=== PATIENT | female | born 1970 | race Caucasian/White ===

== ENCOUNTER → 2016-09-15 | Outpatient (CLI) | payer BC ==
[~2016-09-15] MED LIST: ALDACTONE 25MG25 MG PO; ALPRAZOLAM0.25 M2 PO; AMOXIL500 MG PO; CELEXA 20MG TAB20 MG PO; CLINDAMYCIN HC300 MG PO; LEVOTHYROXIN0.075 M2 PO; NORCO 325 MG-51 TAB PO; SIMVASTATIN40 MG; TORADOL10 M1 PO; TRIAMTERENE-HCTZ 37. PO; ULTRAM50 MG PO; VOLTAREN75 MG PO
--- NOTE | 2016-09-15 10:49 | RADIOLOGY REPORT PS360 ---
US RUQ-(ABD LTD)1ORGAN/QUAD/FU HISTORY: ELEVATED LIVER ENZYMES COMPARISON: None FINDINGS: PANCREAS: Unremarkable. No obvious mass or abnormal fluid collection. No ductal dilatation LIVER: Homogeneous echogenicity. No biliary dilatation. There are at least 3 hyperechoic areas within the liver the largest in the right hepatic lobe measuring 2 cm. These may represent hemangiomas. RIGHT KIDNEY: Unremarkable. Normal size and echogenicity. No hydronephrosis GALLBLADDER: Cholecystectomy. No biliary dilatation. IMPRESSION: 1. At least 3 hyperechoic hepatic lesions. These may very well represent hemangiomas. This could be further evaluated with CT or MRI with hemangioma protocol without and with contrast for confirmation. Differential diagnosis for multiple hyperechoic liver lesion includes other benign etiologies along with hepatic metastasis. Follow-up recommended in this patient with elevated liver enzymes. 2. Prior cholecystectomy
== END ==
LOC: RAD 07:57
DX: R94.5 Abnormal results of liver function studies (principal)

== ENCOUNTER → 2017-06-03 | Outpatient (CLI) | payer BC ==
--- NOTE | 2017-06-06 15:30 | RADIOLOGY REPORT PS360 ---
DIG MAMM-SCREEN RAFA W/CAD CAD Screening COMPARISON: Digital mammograms 09/04/2015 and post biopsy right mammogram 09/19/2015 INDICATION: There is a history of breast cancer patient's aunt. There is been previous biopsy right breast for benign disease. TECHNIQUE: Standard CC and MLO images were obtained. R2 CAD reviewed. FINDINGS: Scattered fibroglandular densities are seen throughout both breasts. There are 2 biopsy clips upper outer quadrant right breast. There is very little if any post biopsy scarring right breast. There is no suspicious lesion and there are no suspicious microcalcifications. IMPRESSION: Fibrofatty parenchyma with no suspicious lesion seen, recommend yearly follow-up BI-RADS CATEGORY: 2_Benign RECOMMENDED FOLLOWUP: 12M 12 MONTH FOLLOW-UP (A letter has been sent to the patient regarding results of the study.)
== END ==
LOC: RAD 16:49
DX: Z12.31 Encounter for screening mammogram for malignant neoplasm of breast (principal); N60.19 Diffuse cystic mastopathy of unspecified breast
CPT/HCPCS: G0202

== ENCOUNTER → 2017-07-03 | Outpatient (CLI) | payer BC ==
--- NOTE | 2017-07-03 18:08 | RADIOLOGY REPORT PS360 ---
US PELVIS-TRANSVAGINAL ONLY HISTORY: MENORRHAGIA ORDERING PHYSICIAN: Reena Moss MD PATIENT AGE: 47 years COMPARISON: 11/13/2008 FINDINGS: UTERUS: The uterus is retroverted. The uterus measures 7.7 x 4 x 4.3 cm. Combined endometrial thickness is 18 mm. RIGHT OVARY: 2.7 x 2.4 cm LEFT OVARY: 2.6 x 2.5 cm CUL-DE-SAC FLUID: No cul-de-sac fluid apparent OTHER FINDINGS: None IMPRESSION: 1. Thickened endometrium at 18 mm 2. Retroverted uterus
== END ==
LOC: RAD 15:30
DX: N92.0 Excessive and frequent menstruation with regular cycle (principal)

== ENCOUNTER → 2017-07-27 | Outpatient (CLI) | payer BC ==
[2017-07-27 17:36] LABS: HEMOGLOBIN 15.3 g/dL (12.2-16.2); LYMPH # 3.2 K/mm3 (0.7-4.5); LYMPH % 28.5 % (10-50.0)
[2017-07-27 18:33] LABS: URINE BILIRUBIN - DIPSTICK NEGATIVE (NEG); URINE BLOOD NEGATIVE (NEG)
[2017-07-27 19:39] LABS: BUN 15 mg/dL (7-18)
[2017-07-27 19:41] LABS: GFR (ESTIMATED) 76 ML/MIN (59-)
== END ==
LOC: LAB 16:48
PROVIDERS: Obstetrics & Gynecology
DX: N92.0 Excessive and frequent menstruation with regular cycle (principal); Z01.812 Encounter for preprocedural laboratory examination

== ENCOUNTER → 2017-08-04 | Day surgery (SDC) | payer BC ==
[~2017-08-04] VITALS: Ht 154.9 cm; Wt 78.0 kg
--- NOTE | 2017-08-04 08:57 | Operative Note ---
Procedure/Operative Record Date of Procedure: 08/04/17 Referring physician: Dr. Moss Pre-op diagnosis: 1. Dysfunctional uterine bleeding. 2. Endometrial hyperplasia. Post-op diagnosis: 1. Dysfunctional uterine bleeding. 2. Endometrial hyperplasia. 3. Intrauterine adhesions. Procedure performed: 1. Fractional dilatation and curettage. 2. Attempted diagnostic hysteroscopy. Surgeon: Darron Hensley Anesthesia: Gen., NARROW GAUGE OPERATOR Jael Indications: 1. Dysfunctional uterine bleeding. 2. Endometrial hyperplasia. Description of procedure: After the patient was prepped and draped in usual fashion and general anesthesia was administered, examination under anesthesia revealed a slightly enlarged retroverted uterus, with no palpable adnexal masses. A weighted speculum was placed within the posterior fourchette of the vagina. It was difficult to grasp the retracted cervix, but ultimately the anterior lip of the cervix was able to be grasped with a single-tooth tenaculum. The cervical os was stenotic. It was dilated and then a small curette was introduced into the endocervix, with retrieval of a small amount of tissue. Attempt at sounding were met with resistance because of dense intrauterine adhesions. Ultimately, the endocervix was able to be dilated to number 14 Hegar dilators. However, the full length of the uterine cavity was not able to be sounded because of the adhesions. A sharp probe was introduced into the endometrial cavity to the extent possible, and a small amount of tissue and dark clots was removed. Hysteroscopy was not possible because of the intrauterine adhesions. The procedure was then terminated. The sponge and needle counts correct. The estimated blood loss was 10 mL. The patient tolerated the procedure well, was taken to PACU in excellent condition. She will be discharged today, if her vital signs are stable. EBL (ml): 10 Complications: None--attempted diagnostic hysteroscopy aborted because of intrauterine adhesions. Specimens: Uterine curettings. at 1411
--- NOTE | 2017-08-04 09:01 | Operative Note ---
Procedure/Operative Record Date of Procedure: 08/04/17 Referring physician: Dr. Moss Pre-op diagnosis: 1. Dysfunctional uterine bleeding. 2. Endometrial hyperplasia. Post-op diagnosis: 1. Dysfunctional uterine bleeding. 2. Endometrial hyperplasia. 3. Intrauterine adhesions. Procedure performed: 1. Fractional dilatation and curettage. 2. Attempted (aborted) diagnostic hysteroscopy. Surgeon: Darron Henlsey Anesthesia: Gen., DEHYDRATION UNIT OPERATOR Jael Indications: 1. Dysfunctional uterine bleeding. 2. Endometrial hyperplasia. Description of procedure: After the patient was prepped and draped in usual fashion and general anesthesia was administered, examination under anesthesia revealed a slightly enlarged retroverted uterus, with no palpable adnexal masses. A weighted speculum was placed within the posterior fourchette of the vagina. The anterior lip of the cervix was grasped with some difficulty because of its retraction at the vaginal vault. The cervical os was stenotic. It was carefully dilated with the tip of the uterine sound, and then a small curette was introduced into the endocervix, with retrieval of a small amount of tissue. Attempts at sounding the uterine cavity were aborted because of significant resistance by dense intrauterine adhesions. The cervix was able to be dilated to number 14 Hegar dilators, but only sounded to 3 cm before running into the adhesions. Therefore, hysteroscopy was not possible. A sharp curette was introduced into the endometrial cavity, with retrieval of a small amount of tissue and dark clots. The instruments were then removed and the procedure was terminated. The sponge and needle counts correct. Estimate blood loss was 10 mL. The patient tolerated the procedure well , was taken to PACU in excellent condition. She will be discharged today, if her vital signs are stable. EBL (ml): 10 Complications: None--unable to perform diagnostic hysteroscopy because of intrauterine adhesions. Specimens: Uterine curettings at 0901
--- NOTE | 2017-08-04 09:02 | Anesthesia Record ---
Anesthesia Record Part I Total IV fluids: 800 EBL (ml): 0 Urine Output: 25 B/P: 130/88 % SaO2: 97 Pulse: 81 Resps: 12 Temp: 97.2 Patient is: Drowsy, Stable Stable to PACU at: 0900 at 0901
--- NOTE | 2017-08-04 09:02 | Anesthesia Record ---
Anesthesia Record Part II Discharge time: 929 Destination: Same day surgery PACU nurse assessment review? Yes Patient is: Awake, Stable Anesthesia complications? No at 0902
[2017-08-04 10:49] LABS: HEMOGLOBIN 12.9 g/dL (12.2-16.2)
[2017-08-04 10:58] VITALS: BP 115/70
== END ==
LOC: SDC 06:12
PROVIDERS: Obstetrics & Gynecology
PROC: 0UJD8ZZ Inspection of Uterus and Cervix, Via Natural or Artificial Opening Endoscopic (ICD-10-PCS; 2017-08-04)
PROC: 0UDB7ZX Extraction of Endometrium, Via Natural or Artificial Opening, Diagnostic (ICD-10-PCS; principal; 2017-08-04 08:00)
DX: N93.8 Other specified abnormal uterine and vaginal bleeding (principal); N85.00 Endometrial hyperplasia, unspecified
CPT/HCPCS: J2405